=== PATIENT | male | born 1970 | race Caucasian/White ===

== ENCOUNTER 2022-09-24 21:49 | Emergency (ER) | payer SELFPAY ==
[~2022-09-24] VITALS: Ht 175.2 cm; Wt 95.3 kg
[2022-09-24] MEDS ORDERED: METFORMIN HYD1000 MG PO (22:16)
[2022-09-24] MEDS ORDERED: GLIPIZIDE XL10 M1 PO (22:16)
[2022-09-24] MEDS ORDERED: ASPIRIN CHILDRE81 MG PO (22:17)
[2022-09-24] MEDS ORDERED: LIPITOR40 MG PO (22:18)
[2022-09-24] MEDS ORDERED: BUSPIRONE HCL30 MG PO (22:18)
[2022-09-24] MEDS ORDERED: 'TENORMIN50 MG PO (22:18)
[2022-09-24] MEDS ORDERED: B COMPLEX1 EACH PO (22:18)
[2022-09-24] MEDS ORDERED: ZESTORETIC 20-1 EACH PO (22:19)
[2022-09-24] MEDS ORDERED: FLUOXETINE40 MG PO (22:19)
[2022-09-24] MEDS ORDERED: VENLAFAXINE150 MG PO (22:20)
[2022-09-24] MEDS ORDERED: OMEGA 3 1,0001 EACH PO (22:20)
[2022-09-24] MEDS ORDERED: TRULICITY1.5 MG/0.5 SC (22:20)
[2022-09-25] MEDS ORDERED: METHOCARBAMOL500 M1 PO (00:38)
[2022-09-25] MEDS ORDERED: PERCOCET 5-3251 EACH PO (00:38)
== END 2022-09-25 00:50 | disposition home or self-care (01) ==
LOC: ED 21:49
DX: S22.31XA Fracture of one rib, right side, initial encounter for closed fracture (principal); Z88.0 Allergy status to penicillin; Z79.899 Other long term (current) drug therapy; Z79.82 Long term (current) use of aspirin; Z90.49 Acquired absence of other specified parts of digestive tract; W18.39XA Other fall on same level, initial encounter; Y93.89 Activity, other specified; Y92.89 Other specified places as the place of occurrence of the external cause; Y99.8 Other external cause status

== ENCOUNTER 2022-11-20 09:07 | Inpatient (IN) | payer SELFPAY ==
[~2022-11-20] VITALS: Ht 172.7 cm; Wt 90.7 kg
[~2022-11-20 09:07] MED LIST: 'TENORMIN50 MG PO; ASPIRIN CHILDRE81 MG PO; B COMPLEX1 EACH PO; BUSPIRONE HCL30 MG PO; FLUOXETINE40 MG PO; GLIPIZIDE XL10 M1 PO; LIPITOR40 MG PO; METFORMIN HYD1000 MG PO; METHOCARBAMOL500 M1 PO; OMEGA 3 1,0001 EACH PO; PERCOCET 5-3251 EACH PO; TRULICITY1.5 MG/0.5 SC; VENLAFAXINE150 MG PO; ZESTORETIC 20-1 EACH PO
[2022-11-20 09:19] VITALS: BP 173/121
[2022-11-20 09:38] VITALS: BP 170/88
[2022-11-20 09:51] LABS: BASO # 0.1 10*3/uL (0.0-0.1); BASO % 0.9 % (0.0-1.0); EOS # 0.2 10*3/uL (0.0-0.4); EOS % 2.8 % (1.0-4.0); HEMATOCRIT 45.5 % (42.0-52.0); LYMPH # 2.4 10*3/uL (1.3-4.4); LYMPH % 29.1 % (27.0-41.0); MEAN CELL VOLUME 84.4 fl (80.0-94.0); MEAN CORPUSCULAR HGB 30.6 pg (27.0-31.0); MEAN CORPUSCULAR HGB CONC 36.3 g/dl (33.0-37.0); MEAN PLATELET VOLUME 9.5 fl (9.6-12.3); MONO # 0.5 10*3/uL (0.1-1.0); PLATELET COUNT AUTOMATED 302 10*3/uL (130-400); RED BLOOD COUNT 5.39 10*6/uL (4.50-5.90); RED CELL DISTRI WIDTH 13.1 % (0-14.5); WHITE BLOOD COUNT 8.2 10*3/uL (4.8-10.8)
[2022-11-20 09:57] LABS: BILIRUBIN Negative (Negative); BLOOD Trace-Lysed (Negative); CLARITY Clear (Clear); COLOR Yellow (Yellow); GLUCOSE 3+ (Negative); KETONE Negative (Negative); LEUKO ESTERASE Negative (Negative); NITRITE Negative (Negative); PH 5.5 (4.5-8.0)
[2022-11-20 10:11] LABS: ALKALINE PHOSPHATASE 91 U/L (46-116); BUN 16 mg/dl (9-23); CHLORIDE 100 mmol/L (98-107); POTASSIUM 4.4 mmol/L (3.4-5.1); SGPT/ALT 36 U/L (10-49); TOTAL PROTEIN 7.4 gm/dL (6.0-8.0)
[2022-11-20 10:48] LABS: HYALINE CAST 0-2; WBC 0-2 wbc/hpf (0-5)
[2022-11-20] MEDS ORDERED: VENLAFAXINE H37.5 M5 PO (11:26)
[2022-11-20] MEDS ORDERED: VENLAFAXINE HY150 M2 PO (11:26)
[2022-11-20 11:33] VITALS: BP 96/67
[2022-11-20 16:18] LABS: URINE AMPHETAMINES Negative (1000ng/ml); URINE BARBITURATES Negative (200ng/ml); URINE BENZODIAZEPINES Negative (200ng/ml); URINE CANNABINOIDS (THC) Negative (50ng/ml); URINE COCAINE Negative (300ng/ml); URINE METHADONE Negative (300ng/ml); URINE OPIATES Negative (300ng/ml); URINE PHENCYCLIDINE Negative (25ng/ml)
[2022-11-20 16:31] VITALS: BP 150/97
[2022-11-20 19:07] VITALS: BP 120/78
[2022-11-20 20:17] VITALS: BP 102/45
[2022-11-21] VITALS: BP 129/99
[2022-11-21 07:12] LABS: BASO # 0.1 10*3/uL (0.0-0.1); BASO % 0.6 % (0.0-1.0); EOS # 0.2 10*3/uL (0.0-0.4); EOS % 3.1 % (1.0-4.0); LYMPH # 2.6 10*3/uL (1.3-4.4); LYMPH % 33.9 % (27.0-41.0); MEAN CORPUSCULAR HGB CONC 34.9 g/dl (33.0-37.0); MEAN PLATELET VOLUME 9.8 fl (9.6-12.3); MONO # 0.5 10*3/uL (0.1-1.0); MONO % 6.9 % (3.0-9.0); NEUT # 4.3 10*3/uL (2.3-7.9); NEUT % 55.2 % (47.0-73.0); PLATELET COUNT AUTOMATED 280 10*3/uL (130-400); RED BLOOD COUNT 5.23 10*6/uL (4.50-5.90); RED CELL DISTRI WIDTH 12.9 % (0-14.5); WHITE BLOOD COUNT 7.7 10*3/uL (4.8-10.8)
[2022-11-21 08:00] VITALS: BP 144/71
[2022-11-21 08:21] LABS: ALKALINE PHOSPHATASE 86 U/L (46-116); BUN 19 mg/dl (9-23); CHLORIDE 101 mmol/L (98-107); CHOLESTEROL 116 mg/dL (<200); FREE T4 1.28 ng/dl (0.89-1.76); LDL CHOLESTEROL 53 mg/dL (9-159); POTASSIUM 3.9 mmol/L (3.4-5.1); SGPT/ALT 30 U/L (10-49); THYROID STIM HORMONE (HS) 0.703 uIU/ml (0.550-4.780); TOTAL PROTEIN 6.8 gm/dL (6.0-8.0); TRIGLYCERIDES 190 mg/dl (<150)
[2022-11-21 12:00] VITALS: BP 122/87
[2022-11-21 16:00] VITALS: BP 128/81
[2022-11-21 20:00] VITALS: BP 141/74
[2022-11-22] VITALS: BP 127/71
[2022-11-22 08:00] VITALS: BP 136/82
[2022-11-22 12:00] VITALS: BP 151/86
[2022-11-22] MEDS ORDERED: ATORVASTATIN CA80 M1 PO (13:06)
[2022-11-22] MEDS ORDERED: PLAVIX75 M1 PO (13:06)
[2022-11-22] MEDS ORDERED: ASPIRIN ADULT L81 M1 PO (13:06)
== END 2022-11-22 15:45 | disposition home or self-care (01) | DRG 66 ==
LOC: ED 09:07 → 5E 11:50 → EDHOLD 11:50 → 5E 18:20
PROVIDERS: Emergency Medicine; Internal Medicine; ADMIT Internal Medicine; ATTEND Internal Medicine
DX: I63.9 Cerebral infarction, unspecified (principal); G43.411 Hemiplegic migraine, intractable, with status migrainosus; R29.701 NIHSS score 1; E78.5 Hyperlipidemia, unspecified; I10 Essential (primary) hypertension; E11.65 Type 2 diabetes mellitus with hyperglycemia; R31.21 Asymptomatic microscopic hematuria; Z88.0 Allergy status to penicillin; Z82.49 Family history of ischemic heart disease and other diseases of the circulatory system

== ENCOUNTER → 2022-11-26 | Outpatient (CLI) | payer SELFPAY ==
[~2022-11-26] MED LIST changes: +ASPIRIN ADULT L81 M1 PO; +ATORVASTATIN CA80 M1 PO; +PLAVIX75 M1 PO; +VENLAFAXINE H37.5 M5 PO; +VENLAFAXINE HY150 M2 PO
== END | disposition home or self-care (01) ==
LOC: RESCLI 13:34
PROVIDERS: ATTEND Student in an Organized Health Care Education/Training Program
DX: I63.9 Cerebral infarction, unspecified (principal); Z13.9 Encounter for screening, unspecified; Z88.0 Allergy status to penicillin; Z72.89 Other problems related to lifestyle; Z90.49 Acquired absence of other specified parts of digestive tract; Z98.890 Other specified postprocedural states; Z79.84 Long term (current) use of oral hypoglycemic drugs; Z79.82 Long term (current) use of aspirin; Z79.899 Other long term (current) drug therapy

== ENCOUNTER → 2022-12-24 | Outpatient (CLI) | payer SELFPAY | END | disposition home or self-care (01) | LOC: RESCLI 12-23 01:06 | PROVIDERS: ATTEND Internal Medicine | DX: E11.9 Type 2 diabetes mellitus without complications (principal); F41.1 Generalized anxiety disorder; N52.9 Male erectile dysfunction, unspecified; I63.9 Cerebral infarction, unspecified; E63.9 Nutritional deficiency, unspecified; E78.5 Hyperlipidemia, unspecified; F32.9 Major depressive disorder, single episode, unspecified; J30.2 Other seasonal allergic rhinitis; Z98.890 Other specified postprocedural states; Z90.49 Acquired absence of other specified parts of digestive tract; Z88.0 Allergy status to penicillin; Z79.84 Long term (current) use of oral hypoglycemic drugs; Z79.82 Long term (current) use of aspirin; Z79.899 Other long term (current) drug therapy ==

== ENCOUNTER → 2023-03-10 | Outpatient (CLI) | payer BC ==
[2023-03-10 09:50] LABS: BUN 14 mg/dl (9-23); CHLORIDE 101 mmol/L (98-107); POTASSIUM 4.3 mmol/L (3.4-5.1)
== END | disposition home or self-care (01) ==
LOC: RESCLI 01:19
PROVIDERS: Internal Medicine; ATTEND Internal Medicine
DX: I10 Essential (primary) hypertension (principal); E11.9 Type 2 diabetes mellitus without complications; F41.1 Generalized anxiety disorder; R17 Unspecified jaundice; N52.9 Male erectile dysfunction, unspecified; E63.9 Nutritional deficiency, unspecified; E78.5 Hyperlipidemia, unspecified; F32.9 Major depressive disorder, single episode, unspecified; J30.2 Other seasonal allergic rhinitis; I63.9 Cerebral infarction, unspecified; Z88.0 Allergy status to penicillin; Z98.890 Other specified postprocedural states; Z90.49 Acquired absence of other specified parts of digestive tract; Z79.02 Long term (current) use of antithrombotics/antiplatelets; Z79.899 Other long term (current) drug therapy

== ENCOUNTER 2024-02-25 13:38 | Inpatient (IN) | payer OTHER ==
[~2024-02-25] VITALS: Ht 175.2 cm; Wt 92.1 kg
[2024-02-25 13:41] VITALS: BP 163/92
[2024-02-25 14:11] LABS: BASO # 0.1 10*3/uL (0.0-0.1); BASO % 0.6 % (0.0-1.0); EOS # 0.1 10*3/uL (0.0-0.4); EOS % 1.2 % (1.0-4.0); HEMATOCRIT 25.7 % (42.0-52.0); LYMPH # 1.2 10*3/uL (1.3-4.4); LYMPH % 14.1 % (27.0-41.0); MEAN CELL VOLUME 88.6 fl (80.0-94.0); MEAN CORPUSCULAR HGB CONC 32.7 g/dl (33.0-37.0); MEAN PLATELET VOLUME 8.6 fl (9.6-12.3); MONO # 0.8 10*3/uL (0.1-1.0); NEUT # 6.4 10*3/uL (2.3-7.9); NEUT % 74.6 % (47.0-73.0); NUCLEATED RED BLOOD CELL 0.2 % (0.0-0.0); PLATELET COUNT AUTOMATED 384 10*3/uL (130-400); RED CELL DISTRI WIDTH 14.5 % (0-14.5); WHITE BLOOD COUNT 8.6 10*3/uL (4.8-10.8)
[2024-02-25 14:22] LABS: ACT PARTIAL THROMBO TIME 28.7 SECONDS (20.0-32.1)
[2024-02-25] MEDS ORDERED: LISINOPRIL40 MG PO (14:26)
[2024-02-25] MEDS ORDERED: CARVEDILOL6.25 MG PO (14:30)
[2024-02-25] MEDS ORDERED: HYDR12.5C PO (14:30)
[2024-02-25 14:34] LABS: ALKALINE PHOSPHATASE 118 U/L (46-116); BUN 15 mg/dl (9-23); CHLORIDE 102 mmol/L (98-107); SGPT/ALT 76 U/L (5-49); TOTAL PROTEIN 6.3 gm/dL (6.0-8.0)
[2024-02-25] MEDS ORDERED: Acetaminophen/Hydrocodone 5 MG/325 MG TABLET PO ONE (14:45)
[2024-02-25] MEDS ORDERED: MAGNESIUM SULFATE 50 ML IV ONE (14:50)
[2024-02-25 16:05] LABS: BILIRUBIN Negative (Negative); BLOOD 2+ (Negative); CLARITY Clear (Clear); COLOR Yellow (Yellow); GLUCOSE Negative (Negative); KETONE 1+ (Negative); LEUKO ESTERASE 1+ (Negative); NITRITE Negative (Negative); PH 6.5 (4.5-8.0); SPECIFIC GRAVITY 1.015 (1.001-1.030)
[2024-02-25 16:25] LABS: BACTERIA 1+; MUCOUS 1+; RBC 41-50 rbc/hpf (0-2); WBC 16-20 wbc/hpf (0-5)
[2024-02-25] MEDS ORDERED: Ceftriaxone Sodium 1 GM/10 ML SYR IV ONE (16:40)
[2024-02-25] MEDS ORDERED: Ondansetron Hydrochloride 4 MG/2 ML VIAL IV PRN (17:20)
[2024-02-25] MEDS ORDERED: Magnesium Hydroxide 30 ML UDC PO PRN (17:20)
[2024-02-25] MEDS ORDERED: ACETAMINOPHEN 325 MG TAB PO PRN (17:20)
[2024-02-25] MEDS ORDERED: BISACODYL 5 MG TAB PO PRN (17:20)
[2024-02-25] MEDS ORDERED: Acetaminophen/Hydrocodone 5 MG/325 MG TABLET PO PRN (17:20)
[2024-02-25] MEDS ORDERED: SODIUM CHLORIDE 0.9% 1,000 ML IV ONE (17:25)
[2024-02-25 17:30] VITALS: BP 158/74
[2024-02-25] MEDS ORDERED: FLUOXETINE HCL60 MG PO (17:53)
[2024-02-25] MEDS ORDERED: [UNRECOGNIZED DRUG - OTHER] PO (17:56)
[2024-02-25] MEDS ORDERED: [UNRECOGNIZED DRUG - OTHER] PO (17:57)
[2024-02-25] MEDS ORDERED: JARDIANCE25 MG PO (17:58)
[2024-02-25] MEDS ORDERED: LANTUS SOL100 UNIT/1 SC (17:59)
[2024-02-25] MEDS ORDERED: DEXTROSE 10 % IN WATER 250 ML IV PRN (18:00)
[2024-02-25] MEDS ORDERED: MULTIPLE VITAM1 EAC2 PO (18:00)
[2024-02-25] MEDS ORDERED: NERVIVE PO (18:01)
[2024-02-25] MEDS ORDERED: [UNRECOGNIZED DRUG - OTHER] PO (18:03)
[2024-02-25] MEDS ORDERED: TADALAFIL5 MG PO (18:06)
[2024-02-25] MEDS ORDERED: FLOMAX0.4 MG PO (18:08)
[2024-02-25] MEDS ORDERED: SEPTDS PO (18:09)
[2024-02-25] MEDS ORDERED: NEURONTIN100 MG PO (18:09)
[2024-02-25] MEDS ORDERED: OXYCODONE HCL5 MG PO (18:10)
[2024-02-25 20:00] VITALS: BP 161/74
[2024-02-25] MEDS ORDERED: Venlafaxine Hydrochloride 75 MG CAP PO SCH (21:50)
[2024-02-25] MEDS ORDERED: Fluoxetine Hydrochloride 20 MG CAP PO SCH (21:50)
[2024-02-25] MEDS ORDERED: Insulin Glargine, Recombinan 1 UNIT/0.01 ML SC SCH (22:00)
[2024-02-25] MEDS ORDERED: ATORVASTATIN CALCIUM 80 MG TAB PO SCH (22:00)
[2024-02-25] MEDS ORDERED: Sulfamethoxazole/Trimethopri 1 TAB TAB PO SCH (22:00)
[2024-02-25] MEDS ORDERED: GABAPENTIN 100 MG CAP PO SCH (22:00)
[2024-02-25] MEDS ORDERED: INSULIN LISPRO 1 UNIT/0.01 ML SQ SCH (22:00)
[2024-02-25] MEDS ORDERED: busPIRone Hydrochloride 15 MG TAB PO SCH (22:00)
[2024-02-25] MEDS ORDERED: LISINOPRIL 40 MG TAB PO SCH (22:10)
[2024-02-26] VITALS: BP 160/72; BP 163/84
[2024-02-26 05:29] LABS: CHOLESTEROL 96 mg/dL (<200); POTASSIUM 3.9 mmol/L (3.4-5.1)
[2024-02-26] MEDS ORDERED: Pantoprazole Sodium 40 MG TAB PO SCH (06:00)
[2024-02-26 06:45] LABS: MANUAL DIFF REFLEX YES
[2024-02-26] MEDS ORDERED: glipiZIDE XL 5 MG TAB PO SCH (07:30)
[2024-02-26 08:00] VITALS: BP 140/62
[2024-02-26 08:41] LABS: BASO % 0.2 % (0.0-1.0); EOS # 0.1 10*3/uL (0.0-0.4); HEMATOCRIT 24.4 % (42.0-52.0); LYMPH # 1.2 10*3/uL (1.3-4.4); LYMPH % 13.6 % (27.0-41.0); MEAN CORPUSCULAR HGB 29.2 pg (27.0-31.0); MEAN CORPUSCULAR HGB CONC 32.4 g/dl (33.0-37.0); MEAN PLATELET VOLUME 8.5 fl (9.6-12.3); MONO # 0.8 10*3/uL (0.1-1.0); MONO % 8.5 % (3.0-9.0); NEUT # 6.9 10*3/uL (2.3-7.9); NEUT % 76.3 % (47.0-73.0); RED BLOOD COUNT 2.71 10*6/uL (4.50-5.90); RED CELL DISTRI WIDTH 14.8 % (0-14.5); WHITE BLOOD COUNT 9.1 10*3/uL (4.8-10.8)
[2024-02-26 08:52] LABS: PLATELET COUNT AUTOMATED 346 10*3/uL (130-400)
[2024-02-26 09:14] LABS: BASOPHILS 1 % (0-1); POLYCHROMASIA SLIGHT; TOTAL CELLS COUNTED 100 #CELLS
[2024-02-26 09:16] LABS: OVALOCYTES FEW; PLATELET SUFFICIENCY NORMAL (NORMAL); ROULEAUX SLIGHT
[2024-02-26] MEDS ORDERED: FOAM BANDAGE 6X6 T ONE (09:30)
[2024-02-26 09:46] LABS: BUN 12 mg/dl (9-23)
[2024-02-26 09:48] LABS: CHLORIDE 106 mmol/L (98-107)
[2024-02-26 09:52] LABS: LDL CHOLESTEROL 49 mg/dL (9-159); TRIGLYCERIDES 139 mg/dl (<150)
[2024-02-26 09:53] LABS: TOTAL PROTEIN 6.1 gm/dL (6.0-8.0)
[2024-02-26 09:54] LABS: SGPT/ALT 69 U/L (5-49)
[2024-02-26 09:55] LABS: ALKALINE PHOSPHATASE 113 U/L (46-116)
[2024-02-26] MEDS ORDERED: LISINOPRIL 40 MG TAB PO SCH (10:00)
[2024-02-26] MEDS ORDERED: CARVEDILOL 6.25 MG TAB PO SCH (10:00)
[2024-02-26] MEDS ORDERED: Venlafaxine Hydrochloride 75 MG CAP PO SCH ×2 (10:00)
[2024-02-26] MEDS ORDERED: Tamsulosin Hydrochloride 0.4 MG CAP PO SCH (10:00)
[2024-02-26] MEDS ORDERED: Enoxaparin Sodium 40 MG/0.4 ML SYR SC SCH (10:00)
[2024-02-26] MEDS ORDERED: Clopidogrel Hydrogen Sulfate 75 MG TAB PO SCH (10:00)
[2024-02-26] MEDS ORDERED: Fluoxetine Hydrochloride 20 MG CAP PO SCH (10:00)
[2024-02-26] MEDS ORDERED: HYDROCHLOROTHIAZIDE 12.5 MG CAP PO SCH (10:00)
[2024-02-26 12:00] VITALS: BP 112/68
[2024-02-26 16:00] VITALS: BP 139/75
[2024-02-26] MEDS ORDERED: Ceftriaxone Sodium 1 GM,IV 1 EA in SYRINGE INFUSION 10 ML IV SCH (16:00)
[2024-02-26 20:00] VITALS: BP 173/87
[2024-02-26] MEDS ORDERED: TEMAZEPAM 15 MG CAP PO PRN (22:00)
[2024-02-26] MEDS ORDERED: Melatonin 3 MG TABLET PO PRN (23:25)
[2024-02-27] VITALS: BP 152/89
[2024-02-27 06:42] LABS: BASO # 0.1 10*3/uL (0.0-0.1); BASO % 0.6 % (0.0-1.0); EOS # 0.1 10*3/uL (0.0-0.4); EOS % 1.6 % (1.0-4.0); HEMATOCRIT 25.4 % (42.0-52.0); LYMPH # 1.3 10*3/uL (1.3-4.4); LYMPH % 15.4 % (27.0-41.0); MEAN CELL VOLUME 90.7 fl (80.0-94.0); MEAN CORPUSCULAR HGB 29.3 pg (27.0-31.0); MEAN CORPUSCULAR HGB CONC 32.3 g/dl (33.0-37.0); MEAN PLATELET VOLUME 8.8 fl (9.6-12.3); MONO # 0.7 10*3/uL (0.1-1.0); MONO % 8.7 % (3.0-9.0); NEUT # 5.9 10*3/uL (2.3-7.9); NEUT % 73.1 % (47.0-73.0); PLATELET COUNT AUTOMATED 390 10*3/uL (130-400); RED CELL DISTRI WIDTH 15.7 % (0-14.5); WHITE BLOOD COUNT 8.1 10*3/uL (4.8-10.8)
[2024-02-27 07:09] LABS: ALKALINE PHOSPHATASE 116 U/L (46-116); BUN 10 mg/dl (9-23); CHLORIDE 104 mmol/L (98-107); POTASSIUM 4.2 mmol/L (3.4-5.1); SGPT/ALT 57 U/L (5-49); TOTAL PROTEIN 6.3 gm/dL (6.0-8.0)
[2024-02-27 08:00] VITALS: BP 168/87
[2024-02-27 12:00] VITALS: BP 170/92
[2024-02-27 16:00] VITALS: BP 150/90
[2024-02-27 20:00] VITALS: BP 109/72
[2024-02-28] VITALS: BP 155/82
[2024-02-28 06:02] LABS: BASO % 0.4 % (0.0-1.0); EOS # 0.2 10*3/uL (0.0-0.4); HEMATOCRIT 28.4 % (42.0-52.0); LYMPH # 1.6 10*3/uL (1.3-4.4); LYMPH % 17.8 % (27.0-41.0); MEAN CORPUSCULAR HGB 29.2 pg (27.0-31.0); MEAN PLATELET VOLUME 8.8 fl (9.6-12.3); MONO # 0.7 10*3/uL (0.1-1.0); MONO % 8.1 % (3.0-9.0); NEUT # 6.4 10*3/uL (2.3-7.9); NEUT % 70.9 % (47.0-73.0); PLATELET COUNT AUTOMATED 454 10*3/uL (130-400); RED BLOOD COUNT 3.12 10*6/uL (4.50-5.90); RED CELL DISTRI WIDTH 16.2 % (0-14.5)
[2024-02-28 06:24] LABS: BUN 11 mg/dl (9-23); CHLORIDE 103 mmol/L (98-107); POTASSIUM 4.7 mmol/L (3.4-5.1)
[2024-02-28 08:00] VITALS: BP 166/97
[2024-02-28] MEDS ORDERED: HYDROCHLOROTHIAZIDE 25 MG TAB PO SCH (10:00)
[2024-02-28 12:00] VITALS: BP 165/72
[2024-02-28] MEDS ORDERED: FOAM BANDAGE 6X6 T ONE (14:18)
[2024-02-28 16:00] VITALS: BP 159/97
[2024-02-28 20:00] VITALS: BP 152/88
[2024-02-29 00:12] VITALS: BP 160/88
[2024-02-29 05:55] LABS: BUN 15 mg/dl (9-23); CHLORIDE 103 mmol/L (98-107); POTASSIUM 5.2 mmol/L (3.4-5.1)
[2024-02-29 06:08] LABS: BASO # 0.1 10*3/uL (0.0-0.1); BASO % 0.6 % (0.0-1.0); EOS # 0.2 10*3/uL (0.0-0.4); EOS % 2.3 % (1.0-4.0); HEMATOCRIT 31.2 % (42.0-52.0); LYMPH # 1.8 10*3/uL (1.3-4.4); LYMPH % 18.3 % (27.0-41.0); MEAN CELL VOLUME 91.8 fl (80.0-94.0); MEAN CORPUSCULAR HGB 29.4 pg (27.0-31.0); MEAN CORPUSCULAR HGB CONC 32.1 g/dl (33.0-37.0); MEAN PLATELET VOLUME 8.8 fl (9.6-12.3); MONO # 0.8 10*3/uL (0.1-1.0); MONO % 7.5 % (3.0-9.0); NEUT # 7.1 10*3/uL (2.3-7.9); NEUT % 70.4 % (47.0-73.0); PLATELET COUNT AUTOMATED 503 10*3/uL (130-400); RED CELL DISTRI WIDTH 16.3 % (0-14.5)
[2024-02-29 08:00] VITALS: BP 141/79
[2024-02-29 12:00] VITALS: BP 130/93
[2024-02-29] MEDS ORDERED: Acetaminophen/Hydrocodone ES 7.5/325 tablet PO PRN (13:00)
[2024-02-29 16:00] VITALS: BP 124/68
[2024-02-29 20:00] VITALS: BP 130/73
[2024-02-29] MEDS ORDERED: HEEL PROTECTOR DEVICE ONE (20:10)
[2024-02-29] MEDS ORDERED: CHAIR CUSHION DEVICE ONE (20:10)
[2024-03-01] VITALS: BP 132/74
[2024-03-01 08:00] VITALS: BP 136/90
[2024-03-01 12:00] VITALS: BP 140/72
[2024-03-01 16:00] VITALS: BP 131/87
[2024-03-01 20:00] VITALS: BP 141/88
[2024-03-02] VITALS: BP 141/88
[2024-03-02 08:00] VITALS: BP 126/83
[2024-03-02] MEDS ORDERED: ASPIRIN, CHEWABLE 81 MG TAB PO SCH (10:00)
[2024-03-02 12:00] VITALS: BP 125/84
[2024-03-02 16:00] VITALS: BP 120/88
[2024-03-02 20:00] VITALS: BP 121/91
[2024-03-03] VITALS: BP 148/79
[2024-03-03 08:00] VITALS: BP 139/84
[2024-03-03 11:40] VITALS: BP 129/74
[2024-03-03] MEDS ORDERED: HYDR25T PO (11:45)
[2024-03-03] MEDS ORDERED: ASPIRIN CHILDRE81 MG PO (11:45)
== END 2024-03-03 12:48 | disposition home or self-care (01) | DRG 699 ==
LOC: ED 13:38 → EDHOLD 16:39 → 4E 16:39
PROVIDERS: Nurse Practitioner Family; Occupational Therapist; Student in an Organized Health Care Education/Training Program; ADMIT Internal Medicine; ATTEND Internal Medicine
DX: T83.511A Infection and inflammatory reaction due to indwelling urethral catheter, initial encounter (principal); E44.0 Moderate protein-calorie malnutrition; I10 Essential (primary) hypertension; F41.9 Anxiety disorder, unspecified; F32.A Depression, unspecified; E78.5 Hyperlipidemia, unspecified; E11.65 Type 2 diabetes mellitus with hyperglycemia; R31.9 Hematuria, unspecified; R26.2 Difficulty in walking, not elsewhere classified; D64.9 Anemia, unspecified; E83.42 Hypomagnesemia; R74.01 Elevation of levels of liver transaminase levels; S71.002A Unspecified open wound, left hip, initial encounter; S51.002A Unspecified open wound of left elbow, initial encounter; Y84.8 Other medical procedures as the cause of abnormal reaction of the patient, or of later complication, without mention of misadventure at the time of the procedure; Z88.0 Allergy status to penicillin; Z90.49 Acquired absence of other specified parts of digestive tract; Y92.89 Other specified places as the place of occurrence of the external cause; Z68.30 Body mass index [BMI] 30.0-30.9, adult

== ENCOUNTER → 2024-03-21 | Outpatient (CLI) | payer OTHER ==
[~2024-03-21] MED LIST changes: +CARVEDILOL6.25 MG PO; +FLOMAX0.4 MG PO; +FLUOXETINE HCL60 MG PO; +HYDR12.5C PO; +HYDR25T PO; +JARDIANCE25 MG PO; +LANTUS SOL100 UNIT/1 SC; +LISINOPRIL40 MG PO; +MULTIPLE VITAM1 EAC2 PO; +NERVIVE PO; +NEURONTIN100 MG PO; +OXYCODONE HCL5 MG PO; +SEPTDS PO; +TADALAFIL5 MG PO; +[UNRECOGNIZED DRUG - OTHER] PO; +[UNRECOGNIZED DRUG - OTHER] PO; +[UNRECOGNIZED DRUG - OTHER] PO
== END | disposition home or self-care (01) ==
LOC: ORTHO 03:26
PROVIDERS: ATTEND Orthopaedic Surgery
DX: R26.2 Difficulty in walking, not elsewhere classified (principal); Z96.642 Presence of left artificial hip joint

== ENCOUNTER 2024-05-13 13:02 | Emergency (ER) | payer BC ==
[~2024-05-13] VITALS: Ht 175.2 cm; Wt 86.2 kg
[2024-05-13] MEDS ORDERED: SODIUM CHLORIDE 0.9% 1,000 ML IV ONE (13:20)
[2024-05-13 13:34] LABS: BASO # 0.1 10*3/uL (0.0-0.1); BASO % 0.7 % (0.0-1.0); EOS # 0.2 10*3/uL (0.0-0.4); EOS % 2.3 % (1.0-4.0); HEMATOCRIT 43.9 % (42.0-52.0); LYMPH # 2.6 10*3/uL (1.3-4.4); LYMPH % 30.3 % (27.0-41.0); MEAN CELL VOLUME 85.9 fl (80.0-94.0); MEAN CORPUSCULAR HGB CONC 33.7 g/dl (33.0-37.0); MEAN PLATELET VOLUME 9.1 fl (9.6-12.3); MONO # 0.5 10*3/uL (0.1-1.0); MONO % 5.9 % (3.0-9.0); NEUT # 5.3 10*3/uL (2.3-7.9); NEUT % 60.6 % (47.0-73.0); PLATELET COUNT AUTOMATED 321 10*3/uL (130-400); RED BLOOD COUNT 5.11 10*6/uL (4.50-5.90); RED CELL DISTRI WIDTH 13.3 % (0-14.5); WHITE BLOOD COUNT 8.7 10*3/uL (4.8-10.8)
[2024-05-13 14:01] LABS: BUN 18 mg/dl (9-23); CHLORIDE 104 mmol/L (98-107); POTASSIUM 4.4 mmol/L (3.4-5.1)
== END 2024-05-13 16:37 | disposition home or self-care (01) ==
LOC: ED 13:02
PROVIDERS: Physician Assistant Medical
DX: E86.0 Dehydration (principal); E11.9 Type 2 diabetes mellitus without complications; I10 Essential (primary) hypertension; E78.5 Hyperlipidemia, unspecified; R55 Syncope and collapse; E78.00 Pure hypercholesterolemia, unspecified; Z87.442 Personal history of urinary calculi; Z88.0 Allergy status to penicillin; Z90.49 Acquired absence of other specified parts of digestive tract; Z98.890 Other specified postprocedural states

== ENCOUNTER → 2024-05-18 | Outpatient (CLI) | payer BC | END | disposition home or self-care (01) | LOC: ORTHO 02:12 | PROVIDERS: ATTEND Orthopaedic Surgery | DX: R26.2 Difficulty in walking, not elsewhere classified (principal) ==

== ENCOUNTER → 2024-07-20 | Outpatient (CLI) | payer BC | END | disposition home or self-care (01) | LOC: ORTHO 00:51 | PROVIDERS: ATTEND Orthopaedic Surgery | DX: S72.032D Displaced midcervical fracture of left femur, subsequent encounter for closed fracture with routine healing (principal); Z96.642 Presence of left artificial hip joint; X58.XXXD Exposure to other specified factors, subsequent encounter ==

== ENCOUNTER → 2025-02-17 | Outpatient (CLI) | payer BC ==
[~2025-02-17] MED LIST changes: +ALENDRONATE SOD70 M1 PO; +FLUOXETINE HYDR20 M1 PO; +HYDROCHLOROTHIA50 M1 PO; +HYDROXYZINE PAM50 MG PO; +LISINOPRIL5 MG PO; +VIAGRA100 MG PO; +ZETIA10 MG PO
== END | disposition home or self-care (01) ==
LOC: ORTHO 02:19
PROVIDERS: ATTEND Orthopaedic Surgery
DX: S72.032D Displaced midcervical fracture of left femur, subsequent encounter for closed fracture with routine healing (principal); Z96.642 Presence of left artificial hip joint; X58.XXXD Exposure to other specified factors, subsequent encounter

== ENCOUNTER → 2025-02-23 | Outpatient (CLI) | payer BC ==
[2025-02-23 13:09] LABS: BASO # 0.1 10*3/uL (0.0-0.1); BASO % 1.4 % (0.0-1.0); EOS # 0.7 10*3/uL (0.0-0.4); HEMATOCRIT 33.4 % (42.0-52.0); MEAN CELL VOLUME 74.9 fl (80.0-94.0); MEAN CORPUSCULAR HGB 21.1 pg (27.0-31.0); MEAN CORPUSCULAR HGB CONC 28.1 g/dl (33.0-37.0); MEAN PLATELET VOLUME 9.3 fl (9.6-12.3); MONO # 0.5 10*3/uL (0.1-1.0); MONO % 7.7 % (3.0-9.0); NEUT % 57.6 % (47.0-73.0); PLATELET COUNT AUTOMATED 313 10*3/uL (130-400); RED BLOOD COUNT 4.46 10*6/uL (4.50-5.90); RED CELL DISTRI WIDTH 14.7 % (0-14.5)
[2025-02-23 14:21] LABS: CHOLESTEROL 90 mg/dL (<200); LDL CHOLESTEROL 30 mg/dL (9-159); TRIGLYCERIDES 141 mg/dl (<150)
== END | disposition home or self-care (01) ==
LOC: LAB 12:35
PROVIDERS: Student in an Organized Health Care Education/Training Program; ATTEND Internal Medicine Endocrinology, Diabetes & Metabolism
DX: Z12.5 Encounter for screening for malignant neoplasm of prostate (principal); E11.9 Type 2 diabetes mellitus without complications; N52.9 Male erectile dysfunction, unspecified; E78.5 Hyperlipidemia, unspecified

== ENCOUNTER → 2025-06-01 | Day surgery (SDC) | payer BC ==
[~2025-06-01] VITALS: Ht 172.7 cm; Wt 103.4 kg
[~2025-06-01] MED LIST changes: +Carafate1 GM PO; +Lidocaine Hydrochloride 5 ML VIAL IV ONE; +NOVOLOG10 ML SC; +PROPOFOL 200 MG/20 ML VIAL IV ONE; +PROTONIX40 MG PO; +SODIUM CHLORIDE 0.9% 1,000 ML IV ONE
[2025-06-01 07:26] VITALS: BP 116/70
[2025-06-01 07:56] VITALS: BP 125/64
[2025-06-01 08:11] VITALS: BP 125/74
[2025-06-01 08:26] VITALS: BP 127/71
== END | disposition home or self-care (01) ==
LOC: SDC 05-08 12:30
PROVIDERS: ATTEND Surgery
DX: D64.9 Anemia, unspecified (principal); I10 Essential (primary) hypertension; E78.00 Pure hypercholesterolemia, unspecified; G43.909 Migraine, unspecified, not intractable, without status migrainosus; F41.9 Anxiety disorder, unspecified; F32.A Depression, unspecified; F43.10 Post-traumatic stress disorder, unspecified; Z90.49 Acquired absence of other specified parts of digestive tract; Z86.73 Personal history of transient ischemic attack (TIA), and cerebral infarction without residual deficits; K21.9 Gastro-esophageal reflux disease without esophagitis; E11.40 Type 2 diabetes mellitus with diabetic neuropathy, unspecified; M85.80 Other specified disorders of bone density and structure, unspecified site; Z88.0 Allergy status to penicillin; M81.0 Age-related osteoporosis without current pathological fracture; Z98.890 Other specified postprocedural states; Z79.899 Other long term (current) drug therapy; Z53.8 Procedure and treatment not carried out for other reasons

== ENCOUNTER → 2025-06-09 | Outpatient (CLI) | payer BC ==
[~2025-06-09] MED LIST changes: -Lidocaine Hydrochloride 5 ML VIAL IV ONE; -PROPOFOL 200 MG/20 ML VIAL IV ONE; -SODIUM CHLORIDE 0.9% 1,000 ML IV ONE
[2025-06-09 09:47] LABS: BASO # 0.1 10*3/uL (0.0-0.1); BASO % 1.8 % (0.0-1.0); EOS # 0.8 10*3/uL (0.0-0.4); EOS % 11.5 % (1.0-4.0); MEAN CELL VOLUME 79.2 fl (80.0-94.0); MEAN CORPUSCULAR HGB 21.8 pg (27.0-31.0); MEAN PLATELET VOLUME 8.9 fl (9.6-12.3); MONO # 0.4 10*3/uL (0.1-1.0); MONO % 6.0 % (3.0-9.0); NEUT # 4.5 10*3/uL (2.3-7.9); NEUT % 61.8 % (47.0-73.0); NUCLEATED RED BLOOD CELL 0.0 % (0.0-0.0); NUCLEATED RED BLOOD CELL 0.0 10*3/uL (0.0-0.0); PLATELET COUNT AUTOMATED 303 10*3/uL (130-400); RED CELL DISTRI WIDTH 19.1 % (0-14.5)
[2025-06-09 10:40] LABS: LDL CHOLESTEROL 27 mg/dL (9-159)
[2025-06-09 10:42] LABS: BUN 20 mg/dl (9-23); SGPT/ALT 43 U/L (5-49)
== END | disposition home or self-care (01) ==
LOC: LAB 09:20
PROVIDERS: Student in an Organized Health Care Education/Training Program; ATTEND Internal Medicine Endocrinology, Diabetes & Metabolism
DX: E78.5 Hyperlipidemia, unspecified (principal); D64.9 Anemia, unspecified

== ENCOUNTER 2025-07-03 10:02 | Emergency (ER) | payer BC ==
[2025-07-03 11:09] LABS: BASO # 0.1 10*3/uL (0.0-0.1); BASO % 1.9 % (0.0-1.0); EOS # 0.9 10*3/uL (0.0-0.4); EOS % 15.1 % (1.0-4.0); MEAN CELL VOLUME 82.3 fl (80.0-94.0); MEAN CORPUSCULAR HGB 23.0 pg (27.0-31.0); MEAN PLATELET VOLUME 9.3 fl (9.6-12.3); MONO # 0.5 10*3/uL (0.1-1.0); MONO % 7.6 % (3.0-9.0); NEUT # 3.8 10*3/uL (2.3-7.9); NEUT % 60.6 % (47.0-73.0); NUCLEATED RED BLOOD CELL 0.0 % (0.0-0.0); NUCLEATED RED BLOOD CELL 0.0 10*3/uL (0.0-0.0); PLATELET COUNT AUTOMATED 309 10*3/uL (130-400); RED CELL DISTRI WIDTH 19.2 % (0-14.5)
[2025-07-03 11:31] LABS: BUN 23 mg/dl (9-23)
== END 2025-07-03 14:55 | disposition home or self-care (01) ==
LOC: ED 10:02
PROVIDERS: Internal Medicine
DX: Z77.29 Contact with and (suspected) exposure to other hazardous substances (principal); Z98.890 Other specified postprocedural states; Z90.49 Acquired absence of other specified parts of digestive tract; Z88.0 Allergy status to penicillin; Z88.8 Allergy status to other drugs, medicaments and biological substances

== ENCOUNTER → 2025-07-17 | Outpatient (CLI) | payer BC | LOC: CARD 08:30 | PROVIDERS: ATTEND Internal Medicine Cardiovascular Disease | DX: R06.09 Other forms of dyspnea (principal) ==

== ENCOUNTER → 2025-11-02 | Day surgery (SDC) | payer BC ==
[2025-10-31 11:32] LABS: BUN 23 mg/dl (9-23)
[~2025-11-02] VITALS: Ht 173 cm; Wt 90.7 kg
[~2025-11-02] MED LIST changes: +CALCIUM 600-VI1 EAC3 PO; +COMPLEX B-1001 EACH PO; +GLIPIZIDE10 M2 PO; +IRON325 M1 PO; +Lactated Ringer's Solution 1,000 ML IV ONE; +Lidocaine Hydrochloride 30 ML VIAL ONE; +Lidocaine Hydrochloride 5 ML VIAL IV ONE; +NEURONTIN300 MG PO; +NOVOLOG100 UNIT/1 SC; +NURTEC ODT75 MG PO; +PROPOFOL 200 MG/20 ML VIAL IV ONE; +SILDENAFIL CIT100 MG PO; +VENLAFAXINE75 M1 PO
[2025-11-02 07:52] VITALS: BP 163/82
[2025-11-02 09:27] VITALS: BP 140/87
[2025-11-02 09:42] VITALS: BP 140/87
[2025-11-02 09:57] VITALS: BP 150/93
== END | disposition home or self-care (01) ==
LOC: SDC 10-31 08:45
PROVIDERS: ATTEND Orthopaedic Surgery
DX: G56.01 Carpal tunnel syndrome, right upper limb (principal); I10 Essential (primary) hypertension; R01.1 Cardiac murmur, unspecified; E78.00 Pure hypercholesterolemia, unspecified; G43.909 Migraine, unspecified, not intractable, without status migrainosus; G45.9 Transient cerebral ischemic attack, unspecified; E11.9 Type 2 diabetes mellitus without complications; F41.9 Anxiety disorder, unspecified; F32.A Depression, unspecified; K21.9 Gastro-esophageal reflux disease without esophagitis; K85.90 Acute pancreatitis without necrosis or infection, unspecified; M81.0 Age-related osteoporosis without current pathological fracture; Z88.8 Allergy status to other drugs, medicaments and biological substances; Z98.890 Other specified postprocedural states; Z88.0 Allergy status to penicillin; Z96.41 Presence of insulin pump (external) (internal)